=== PATIENT | female | born 1965 | race Caucasian/White ===

== ENCOUNTER → 2016-08-29 | Outpatient (CLI) | payer OTHER ==
--- NOTE | 2016-08-29 13:59 | CT ---
EXAMINATION TYPE: CT chest w con DATE OF EXAM: 08/29/2016 1:48 PM COMPARISON: 04/30/2016 HISTORY: Lung cancer CT DLP: 234.80 mGycm, Automated exposure control for dose reduction was used. CONTRAST: Performed injected with 100 ml mL of Omnipaque 300. TECHNIQUE: Axial images were obtained at 5 mm thick sections. Reconstructed images are reviewed on [employer] computer in the coronal plane. FINDINGS: Portion of the thyroid visualized is normal. Suprahilar infiltrates are present greater on the right than left. These are new from 04/30/2016. Thi s could be related to the radiation port. No enlarged mediastinal or hilar adenopathy is evident. There is soft tissue increased density thro ugh the aortopulmonic window without discrete underlying mass evident. The appearance is similar to 1 The ascending aorta diameter at the level of the main pulmonary artery is 2.7 cm. The main pulmonary artery diameter at the bifurcation is 2.[address] sections are obtained through the upper abdomen. Abdomen is essentially unremarkable. Osse ous structures appear unremarkable. IMPRESSIONS: 1. . Mediastinal suprahilar infiltrates may be related to some postradiation fibrosis. There is mild increased density without discrete mass in the aortopulmonic window which is similar to prior study. 2. Suspicious masses to suggest recurrent lung cancer not clearly evident.
== END | disposition home or self-care (01) ==
LOC: RADCTMAIN 12:48
PROVIDERS: ATTEND Radiology Diagnostic Radiology
DX: C34.32 Malignant neoplasm of lower lobe, left bronchus or lung (principal)
CPT/HCPCS: 71260; Q9967

== ENCOUNTER → 2016-10-26 | Outpatient (CLI) | payer OTHER ==
--- NOTE | 2016-10-26 11:18 | XR ---
EXAMINATION TYPE: XR chest 2V DATE OF EXAM: 10/26/2016 11:01 AM COMPARISON: February 18, 2016 HISTORY: Chest pain TECHNIQUE: Frontal and lateral views of the chest are obtained. FINDINGS: There is no focal air space opacity. No evidence for pnuemothorax. No pleural effusion. The cardiac silhouette size is within normal limits. The osseous structures are grossly intact. IMPRESSION: 1. No acute cardiopulmonary process.
== END | disposition home or self-care (01) ==
LOC: RADXRMAIN 10:39
PROVIDERS: ATTEND Family Medicine
DX: R05 Cough (principal); C34.92 Malignant neoplasm of unspecified part of left bronchus or lung
CPT/HCPCS: 71020

== ENCOUNTER → 2017-01-01 | Outpatient (CLI) | payer OTHER ==
--- NOTE | 2017-01-01 15:56 | CT ---
EXAMINATION TYPE: CT chest w con DATE OF EXAM: 01/01/2017 COMPARISON: CT chest 08/29/2016 HISTORY: Lung cancer CT DLP: 407.1 mGycm Automated exposure control for dose reduction was used. CONTRAST: CT scan of the chest is performed with IV Contrast, patient injected intravenously with 100 cc of Om nipaque 300. FINDINGS: LUNGS: The abnormal increased attenuation in the perihilar location, suprahilar region on the right i s again noted, there are air bronchograms, scarring present bilaterally along the mediastinum likely due to radiation port. There is no pleural or pericardial effusion. No significant change in the appe arance of the mediastinum, no evident adenopathy. MEDIASTINUM: There are no greater than 1 cm hilar or mediastinal lymph nodes. No pericardial effusi on is seen. AORTA: No additional significant abnormality is seen. OTHER: No additional significant abnormality is seen. IMPRESSION: Stable exam, no significant interval change is evident. Posttreatment changes.
== END | disposition home or self-care (01) ==
LOC: RADCTMAIN 13:05
PROVIDERS: ATTEND Radiology Diagnostic Radiology
DX: C34.32 Malignant neoplasm of lower lobe, left bronchus or lung (principal)
CPT/HCPCS: 71260; Q9967

== ENCOUNTER → 2017-07-18 | Outpatient (CLI) | payer OTHER ==
--- NOTE | 2017-07-18 13:55 | CT ---
EXAMINATION TYPE: CT chest w con DATE OF EXAM: 07/18/2017 COMPARISON: 01/01/2017 HISTORY: Lung cancer treated with chemotherapy and radiation therapy with last doses in December 2015. CT DLP: 393.20 mGycm. Automated Exposure Control for Dose Reduction was Utilized. TECHNIQUE: CT scan of the thorax is performed following with IV Contrast, patient injected with 100 ml mL of Omnipaque 300. FINDINGS: LUNGS: The soft tissue density in the right suprahilar region measures a maximal dimension of 2.4 x 1 .8 cm on series 3 image 18 appearing smaller than on the prior exam of 01/01/2017. There is mild cylin drical right hilar and perihilar bronchiectasis, posttreatment change. No new pulmonary nodules are i dentified. Minimal bibasilar subsegmental atelectasis is seen. No focal consolidation, pleural effusi on or pneumothorax is noted. MEDIASTINUM: There are no greater than 1 cm hilar or mediastinal lymph nodes. No pericardial effusi on is seen. Ascending thoracic aorta is within normal limits of size measuring 2.7 cm. OTHER: Incidental note is made of a phrygian cap of the gallbladder and small splenule. Healed right posterior lateral rib 4 fracture is present. Punctate sclerotic focus of the approximately L1 vertebr al body is stable from the prior and may represent a bone island. No new suspicious osseous lesions a re present. Mild multilevel degenerative change of the thoracic spine is seen. IMPRESSION: 1. Right suprahilar soft tissue density in the region of the previous lung cancer is smaller in size in comparison to exam of 01/01/2017 representing post radiation fibrosis. Other right perihilar posttr eatment changes similar to the prior. 2. No new pulmonary nodules. No mediastinal adenopathy. 3. Healed posterior lateral right rib 4 fracture.
== END | disposition home or self-care (01) ==
LOC: RADCTMAIN 12:37
PROVIDERS: ATTEND Radiology Diagnostic Radiology
DX: C34.32 Malignant neoplasm of lower lobe, left bronchus or lung (principal)
CPT/HCPCS: 71260; Q9967

== ENCOUNTER → 2018-01-18 | Outpatient (CLI) | payer OTHER ==
--- NOTE | 2018-01-21 07:41 | PE ---
EXAMINATION TYPE: PET CT fusion skull to thigh DATE OF EXAM: 01/18/2018 COMPARISON: PET/CT dated 01/07/[address] chest examinations dated 07/18/2017 and 01/01/2017. HISTORY: Lung carcinoma. Treatment of prior chemotherapy and radiation in August 2015. No surgical resection. Subsequent treatment strategy (restaging or treatment monitoring). TECHNIQUE: Following the intravenous administration of 10.2 mCi of F-18 FDG, whole body images are p erformed from the skull base to the midthigh. Images are reviewed on the computer in the coronal, ax ial, and sagittal planes. Reconstructed rotating images are created on independent workstation and r eviewed on the computer. A localization and attenuation correction CT is performed in conjunction w ith the PET scan. SCAN: Second at this institution. FINDINGS: Abdominal background: 4.18 Thoracic background: 2.62 SKULL BASE AND NECK: Focal hypermetabolic activity without corresponding CT abnormality is seen with in the right posterior lateral aryepiglottic fold with a maximum SUV of 8.55. This could relate to ph onation during the examination or focal lesion and direct visualization is recommended. Additionally asymmetric uptake is seen within the left pterygoid muscle with a maximum SUV of 7.1, likely related to muscular usage during the examination. No corresponding CT abnormality is seen. CHEST, MEDIASTINUM, AND HILAR REGION: Right suprahilar soft tissue density continues to decrease in s ize currently measuring 1.9 x 1.8 cm on series 3 image 72 and previously measuring 2.4 x 1.8 cm on th e prior of 07/18/2017. Right perihilar cylindrical bronchiectasis and interstitial prominence again lik gayatri relate to posttreatment/post radiation change and fibrosis. This demonstrates a maximum SUV of 2. 18. ABDOMEN AND PELVIS: There is a new hypermetabolic 4.9 x 3.5 cm right adrenal gland mass is highly maria del rosario picious for neoplasm with a maximum SUV of 13.89. OSSEOUS STRUCTURES: No suspicious hypermetabolic activity. OTHER CT: There is redemonstration of ex vacuo dilatation of the right temporal and occipital horns o f the lateral ventricle as seen on the prior of 02/18/2016 as sequela of encephalomalacia from prior in farct. Visualized paranasal sinuses and mastoid air cells are well aerated. There are no new pulmonary nodules. Bibasilar subsegmental atelectasis is seen. No focal consolidati on, pleural effusion or pneumothorax. Right middle lobe peribronchial cuffing is redemonstrated. Give n the limitations of noncontrast enhanced CT no new mediastinal adenopathy is present. No axillary ad enopathy. Mild multilevel degenerative changes of the thoracic spine are noted. New large right adrenal gland mass is seen as mentioned above. Left adrenal gland is unremarkable. Un enhanced liver, spleen, pancreas, kidneys, and gallbladder are unremarkable in morphology. No dilated bowel. Uterus is grossly unremarkable. Urinary bladder is incompletely distended. Mild calcific athe romatous changes are seen of the abdominal aorta and its branches. Few nonenlarged celiac lymph nodes are seen without hypermetabolic activity and poorly defined due to the lack of intravenous contrast. There is a very small fat filled umbilical hernia superimposed upon mild diastases recti. No new maria del rosario picious osseous lesions are identified. IMPRESSION: 1. New 4.9 cm hypermetabolic right adrenal gland mass compatible with neoplasm. This could represent metastasis or less likely primary adrenal gland neoplasm and percutaneous biopsy could be performed i f tissue sampling is desired for treatment purposes. 2. Continued decreased size of a right suprahilar mass that demonstrates no hypermetabolic activity m ost compatible with treated neoplasm and mild surrounding radiation fibrosis. 3. Focal asymmetric uptake within the right aryepiglottic fold with maximum SUV of 8.55. Direct visua lization with laryngoscopy is recommended for further evaluation. 4. Asymmetric uptake within the left pterygoid musculature likely relates to muscular usage during th e examination.
== END | disposition home or self-care (01) ==
LOC: RADPETMAIN 10:46
PROVIDERS: ATTEND Radiology Diagnostic Radiology
DX: C34.32 Malignant neoplasm of lower lobe, left bronchus or lung (principal); E27.9 Disorder of adrenal gland, unspecified; Z92.3 Personal history of irradiation
CPT/HCPCS: 78815; A9552